=== PATIENT | female | born 1960 | race Caucasian/White ===

== ENCOUNTER 2018-08-18 10:43 | Emergency (ER) | payer OTHER, SELFPAY ==
[2018-08-18 10:44] VITALS: BP 128/71; PULSE 90; RESP 16; TEMP 37.1; O2SAT 96; BMI 29.5
--- NOTE | 2018-08-18 10:54 | RAD_ITS ---
STUDY: X-RAY - RIGHT WRIST REASON FOR EXAM: Female, 57 years old. Pain after fall TECHNIQUE: 3 view(s) of the wrist were obtained. COMPARISON: None. FINDINGS: Normal visualized distal radius and ulna. Normal radiocarpal articulation. Normal distal radioulnar articulation. Normal carpal bones. Normal carpal articulations. Normal carpometacarpal articulation of the thumb. Normal second through fifth carpometacarpal articulations. Normal visualized metacarpal bones. The soft tissue structures are unremarkable. RAD/Wrist min 3 Views IMPRESSION: Normal x-ray examination of the wrist. Electronically Signed: Austin Amor MD at 11:53 EDT , Service support ,
--- NOTE | 2018-08-18 10:56 | ED.DCSUM_ITS ---
- ER Visit Summary Date of Service: 08/18/18 Chief Complaint: Fall History of Present Illness: The patient is a 57 F who fell down 3 steps at her daughter's home secondary to her shoes being wet. She hit her tailbone on the bottom step. Is also complaining of right wrist pain from reaching to try to catch herself. She denies striking her head. She has no headache or neck pain. She did not lose consciousness. Physical Examination: Vital signs unremarkable. Patient sitting upright in bed. Head and neck examination reveals no obvious external sign of trauma. No C- spine tenderness. Heart is regular rate and rhythm. Lung sounds are clear. Chest wall is nontender. Abdomen is soft and nontender. Extremity examination reveals tenderness along the distal radius of the right wrist. There is no significant edema. She can wiggle fingers. There is no tenderness to the elbow or shoulder. Test Results: Right wrist x-rays are normal. Pelvis and sacrum/coccyx x-rays are unremarkable. Emergency Department Course and Treatment: Patient declines anything for pain while here. She will be given a Velcro wrist splint. She will be written for Percocet for breakthrough pain at home. Treatment Plan: [] Disposition: Discharge Impression: 1. Mechanical fall 2. Right wrist sprain 3. Coccyx contusion This note was generated with [employer] dictation software. It may contain incorrect words, spelling, and punctuation that were not noted in review of the chart prior to signing ED Disposition - Plan for ED Patient: Disposition: Home or Assisted Living Instructions: ED Mechanical Fall, ED Sprain Wrist, ED Contusion Sacrum Coccyx Prescriptions: Oxycodone HCl/Acetaminophen [Percocet 5/325] 1 tablet PO Q6H PRN PRN 3 Days #12 tablet PRN Reason: Pain Referrals: Lorenzo Gonsalez MD [Primary Care Provider] - 1 Week if not improving
--- NOTE | 2018-08-18 11:25 | RAD_ITS ---
STUDY: X-RAY - PELVIS REASON FOR EXAM: Female, 57 years old. Pain after a fall TECHNIQUE: One view of the pelvis was obtained. COMPARISON: None. FINDINGS: There is a non-specific bowel gas pattern. Normal visualized soft tissue structures. Normal bilateral iliac wings, sacroiliac joints and visualized sacrum. Normal visualized bilateral superior and inferior pubic rami. Normal pubic symphysis. Normal ischial tuberosities. Normal visualized right femoral head. Normal right acetabulum. Normal right hip joint. Normal visualized left femoral head. Normal left acetabulum. Normal left hip joint. RAD/Pelvis 1 or 2 Views IMPRESSION: Normal x-ray examination of the pelvis. Electronically Signed: Austin Amor MD at 11:53 EDT , Service support ,
--- NOTE | 2018-08-18 11:30 | RAD_ITS ---
STUDY: X-RAY - SACRUM/COCCYX REASON FOR EXAM: Female, 57 years old. Pain after a fall TECHNIQUE: 3 view(s) of the sacrum and coccyx were obtained. COMPARISON: None. FINDINGS: Normal bilateral sacroiliac joints. Normal visualized sacral ala and fused sacral bodies. Normal sacrococcygeal junction with a normal angulation. Normal coccygeal segments. The presacral soft tissue structures are unremarkable. RAD/Sacrum-Coccyx min 2 Views IMPRESSION: Normal x-rays of the sacrum and coccyx. Electronically Signed: Austin Amor MD at 11:54 EDT , Service support ,
[2018-08-18 13:00] VITALS: BP 116/23; PULSE 78; RESP 16; O2SAT 99
== END 2018-08-18 13:24 | disposition home or self-care (01) ==
PROVIDERS: Emergency Provider Emergency Medicine; Family Provider Family Medicine; PCP Family Medicine
DX: S63.501A Unspecified sprain of right wrist, initial encounter (principal); S30.0XXA Contusion of lower back and pelvis, initial encounter; W10.9XXA Fall (on) (from) unspecified stairs and steps, initial encounter; Y93.01 Activity, walking, marching and hiking; Y92.009 Unspecified place in unspecified non-institutional (private) residence as the place of occurrence of the external cause; Y99.8 Other external cause status
CPT/HCPCS: 72170; 72220; 73110; 99284

== ENCOUNTER → 2024-10-29 | Outpatient (CLI) | payer OTHER, SELFPAY ==
[2024-11-02 04:07] LABS: QNTFERON TB Mitogen Value > 10.00 IU/mL (.); QNTFERON TB Nil Value 0.03 IU/mL (.); QNTFERON TB1+ Ag Value 0.03 IU/mL (.); QNTFERON TB2+ Ag Value 0.03 IU/mL (.); QNTIFERON TB Positive Criteria Negative (Negative)
== END | disposition home or self-care (01) ==
PROVIDERS: PCP Family Medicine; Referring Provider Physician Assistant Medical; Visit Provider Physician Assistant Medical
DX: L40.0 Psoriasis vulgaris (principal)
CPT/HCPCS: 36415; 86480